=== PATIENT | male | born 1995 | race Caucasian/White ===

== ENCOUNTER 2023-10-08 09:25 | Emergency (ER) | payer OTHER ==
[~2023-10-08] VITALS: Ht 180.3 cm; Wt 113.6 kg
[2023-10-08 09:42] VITALS: TEMP 100.5
[2023-10-08] MEDS ORDERED: 0.9% SODIUM CHLORIDE 10 ML SYRINGE IVP PRN (10:00)
[2023-10-08] MEDS: SODIUM CHLORIDE 0.9% 3,400 ML IV ONE (10:03)
[2023-10-08] MEDS: ACETAMINOPHEN 1000 MG/ISO-OSM 100 ML IV ONE (10:05)
[2023-10-08] MEDS: FAMOTIDINE 20 MG/2 ML VIAL IVP ONE (10:06)
[2023-10-08] MEDS: ONDANSETRON HCL 4 MG/2 ML VIAL IVP ONE (10:06)
[2023-10-08] MEDS: KETOROLAC TROMETHAMINE 30 MG/ML VIAL IVP ONE (10:06)
[2023-10-08 10:13] LABS: COVID AG,FIA SOURCE NASAL SWAB
[2023-10-08 10:20] LABS: BASOPHILS % (AUTO) 0.5 % (0.0-2.0); EOSINOPHILS % (AUTO) 0.3 % (1.0-6.0); HEMATOCRIT 47.2 % (41-53); HEMOGLOBIN 15.7 g/dL (13.5-17.5); LYMPHOCYTES # (AUTO) 1.2 K/uL (1.0-4.8); LYMPHOCYTES % (AUTO) 9.6 % (22.0-44.0); MEAN CORPUSCULAR HEMOGLOBIN 29.1 pg (26.0-34.0); MEAN CORPUSCULAR HGB CONC 33.3 G/dL (31.0-37.0); MEAN CORPUSCULAR VOLUME 87 fL (80-100); MONOCYTES # (AUTO) 1.4 K/uL (0.1-1.0); MONOCYTES % (AUTO) 11.4 % (2.0-9.0); NEUTROPHILS # (AUTO) 9.5 K/uL (1.8-7.7); NEUTROPHILS % (AUTO) 78.2 % (40.0-70.0); PLATELET COUNT (AUTO) 293 K/uL (150-450); RED BLOOD CELL COUNT(AUTO) 5.42 MIL/uL (4.50-5.90); RED CELL DISTRIBUTION WIDTH 13.2 % (11.5-14.5); WHITE BLOOD COUNT (AUTO) 12.2 K/uL (4.5-11.0)
[2023-10-08 10:34] LABS: ANION GAP 13 mmol/L (8-16); CALCIUM, TOTAL 9.4 mg/dL (8.8-10.5); CARBON DIOXIDE 26 mmol/L (22-29); CHLORIDE 100 mmol/L (98-107); CREATININE 1.15 mg/dL (0.60-1.30); GLOMERULAR FILTR. RATE CALC > 60 mL/min (>60); GLUCOSE,RANDOM 101 mg/dL (70-110); POTASSIUM 3.8 mmol/L (3.5-5.1); SODIUM SERUM 139 mmol/L (136-145); UREA NITROGEN, BLOOD 15 mg/dL (7-18)
[2023-10-08] MEDS ORDERED: IOHEXOL 350 MG/ML 100 ML VIAL ONE (10:40)
[2023-10-08] MEDS ORDERED: SODIUM CHLORIDE 0.9% 100 ML ONE (10:40)
[2023-10-08 10:41] LABS: TROPONIN I-HIGH SENSITIVITY 6 ng/L (<76)
[2023-10-08 10:46] LABS: B-TYPE NATRIURETIC PEPTIDE < 5 pg/mL (0-100)
[2023-10-08 10:52] LABS: LACTIC ACID 1.6 mmol/L (0.4-2.0)
[2023-10-08 11:03] LABS: ALANINE AMINOTRANSFERASE 144 U/L (12-78); ALBUMIN 4.4 g/dL (3.4-5.0); ALKALINE PHOSPHATASE 87 U/L (46-116); ASPARTATE AMINOTRANSFERASE 86 U/L (15-37); BILIRUBIN,TOTAL 0.8 mg/dL (0.1-1.0); LIPASE 19 U/L (16-77); TOTAL PROTEIN, SERUM 8.5 g/dL (6.4-8.2)
[2023-10-08 11:03] LABS: SARS-COV2 (COVID) ANTIGEN,FIA Negative (Negative)
[2023-10-08 11:04] LABS: INFLUENZA TYPE A NEGATIVE FOR TYPE A (NEGATIVE); INFLUENZA TYPE B NEGATIVE FOR TYPE B (NEGATIVE)
[2023-10-08 11:46] LABS: CREATINE KINASE, TOTAL ONLY 501 U/L (39-308)
[2023-10-08] MEDS ORDERED: ACET-3385 PO (12:25)
[2023-10-08] MEDS ORDERED: ONDA-104 PO (12:25)
[2023-10-08 12:44] VITALS: BP 106/68; PULSE 95; RESP 16
== END 2023-10-08 13:17 | disposition home or self-care (01) ==
LOC: EMS 09:30
DX: K52.9 Noninfective gastroenteritis and colitis, unspecified (principal); Z20.822 Contact with and (suspected) exposure to COVID-19
CPT/HCPCS: 99285; 74177; 96365; 96375; 71045; 87426; 80053; 82550; 83605; 83690; 83880; 84484; 85025; 87040; 87804; 36415; 93005; 84145; J3490; J1885; J2405; Q9967; J7030; J7050; J0131

== ENCOUNTER 2023-12-27 18:57 | Emergency (ER) | payer OTHER ==
[~2023-12-27] VITALS: Ht 180.3 cm; Wt 109.1 kg
[~2023-12-27 18:57] MED LIST: ACET-3385 PO; ONDA-104 PO
[2023-12-27 19:10] VITALS: BP 120/69; PULSE 84; RESP 14; TEMP 98.2
[2023-12-27 19:31] LABS: APPEARANCE,URINE HAZY (CLEAR); COLOR,URINE DARK YELLOW (YELLOW); GLUCOSE, URINE (UA) NEGATIVE (NEGATIVE); KETONES,URINE NEGATIVE (NEGATIVE); LEUKOCYTE ESTERASE ,URINE LARGE (NEGATIVE); NITRATE,URINE POSITIVE (NEGATIVE); OCCULT BLOOD,URINE NEGATIVE (NEGATIVE); PH,URINE 7.5 (5.0-8.0); PROTEIN,URINE TRACE mg/dL (NEGATIVE)
[2023-12-27 19:32] LABS: BILIRUBIN,URINE SMALL (NEGATIVE)
[2023-12-27 19:48] LABS: RBC,URINE 0-2 /HPF (0-2)
[2023-12-27 19:49] LABS: BACTERIA,URINE None Seen /HPF (None Seen); WBC,URINE Full Field /HPF (0-5)
[2023-12-27] MEDS ORDERED: LEVO-72 PO (22:38)
[2023-12-27] MEDS ORDERED: CEPH-558 PO (22:38)
[2023-12-27] MEDS: CefTRIAXone SODIUM 1 GM/VIAL IM ONE (22:46)
[2023-12-27] MEDS: LIDOCAINE/PF 1% 2 ML VIAL IM ONE (22:46)
== END 2023-12-27 22:56 | disposition home or self-care (01) ==
LOC: EMS 18:57
DX: N39.0 Urinary tract infection, site not specified (principal); Z91.018 Allergy to other foods
CPT/HCPCS: 99283; 81001; 87086; 87186; 96372; J0696; J3490

== ENCOUNTER 2024-07-15 07:56 | Emergency (ER) | payer OTHER ==
[~2024-07-15] VITALS: Ht 180.3 cm; Wt 90.9 kg
[~2024-07-15 07:56] MED LIST changes: +CEPH-558 PO; +LEVO-72 PO
[2024-07-15] MEDS ORDERED: DIPH180L13 PO (08:04)
[2024-07-15] MEDS ORDERED: MULT-1377 PO (08:04)
[2024-07-15 08:29] LABS: COVID AG,FIA SOURCE NASAL SWAB
[2024-07-15] MEDS: IBUPROFEN 600 MG TABLET PO ONE (08:44)
[2024-07-15] MEDS: ACETAMINOPHEN 500 MG TABLET PO ONE (08:44)
[2024-07-15 09:01] LABS: SARS-COV2 (COVID) ANTIGEN,FIA Negative (Negative)
[2024-07-15 09:35] LABS: INFLUENZA TYPE A POSITIVE FOR TYPE A (NEGATIVE)
[2024-07-15] MEDS ORDERED: OSEL75CA45 PO (09:35)
[2024-07-15 09:36] LABS: INFLUENZA TYPE B NEGATIVE FOR TYPE B (NEGATIVE)
[2024-07-15 11:18] VITALS: BP 130/86; PULSE 111; RESP 16; TEMP 101; O2SAT 100
== END 2024-07-15 11:18 | disposition home or self-care (01) ==
LOC: EMS 07:56
DX: J10.1 Influenza due to other identified influenza virus with other respiratory manifestations (principal); Z91.018 Allergy to other foods; Z91.013 Allergy to seafood; Z20.822 Contact with and (suspected) exposure to COVID-19
CPT/HCPCS: 87804; 99283